=== PATIENT | male | born 2000 | race Caucasian/White ===

== ENCOUNTER 2021-02-16 11:17 | Emergency (ER) | payer OTHER ==
[~2021-02-16] VITALS: Ht 165.1 cm; Wt 82.1 kg
[2021-02-16 11:21] VITALS: BP 149/64
--- NOTE | 2021-02-16 11:25 | NUR ---
PT AMBULATED TO ER BED 4 WITH A STEADY GAIT.
--- NOTE | 2021-02-16 11:32 | NUR ---
Dr. De Oliveira with pt for MSE.
--- NOTE | 2021-02-16 11:40 | NUR ---
see complete assessment.
[2021-02-16] MEDS ORDERED: ONDANSETRON 4 MG/2 ML VIAL IVP ONE (11:45)
[2021-02-16] MEDS ORDERED: KETOROLAC 30 MG/ML VIAL IVP ONE (11:45)
[2021-02-16] MEDS ORDERED: NACL 0.9% 1,000 ML IV SCH (11:45)
[2021-02-16 12:03] LABS: BASOPHILS % (AUTO) 0.3 % (0.0-2.0); EOSINOPHILS # (AUTO) 0.1 K/uL (0-0.4); EOSINOPHILS % (AUTO) 1.4 % (0.0-4.0); HEMATOCRIT 45.9 % (36-52); HEMOGLOBIN 15.8 g/dL (12.0-18.0); LYMPHOCYTES # (AUTO) 0.9 K/uL (2.0-11.5); LYMPHOCYTES % (AUTO) 20.6 % (20.5-51.1); MEAN CORPUSCULAR HEMOGLOBIN 30 pg (27-31); MEAN CORPUSCULAR HGB CONC 34 g/dL (33-37); MEAN CORPUSCULAR VOLUME 86.7 fL (80-94); MONOCYTES # (AUTO) 0.4 K/uL (0.8-1.0); MONOCYTES % (AUTO) 10.5 % (1.7-9.3); NEUTROPHILS # (AUTO) 2.9 K/uL (1.8-7.7); NEUTROPHILS % (AUTO) 67.2 % (42.2-75.2); PLATELET COUNT (AUTO) 127 K/uL (140-450); RED BLOOD CELL COUNT(AUTO) 5.29 MIL/uL (4.20-6.10); RED CELL DISTRIBUTION WIDTH 12.9 % (11.6-13.7); WHITE BLOOD COUNT (AUTO) 4.3 K/uL (4.8-10.8)
--- NOTE | 2021-02-16 12:07 | NUR ---
flu and antigen swab collected and sent with Anne-Marie salazar.
--- NOTE | 2021-02-16 12:08 | NUR ---
pt positioned for comfort in bed, connected to cardiac and pulse ox monitoring. VSS. IV site placed, patent with blood return. no other needs at this time.
[2021-02-16 12:21] LABS: ALBUMIN 4.6 g/dL (3.4-5.0); ANION GAP 10.2 (8-16); CARBON DIOXIDE 31.4 mmol/L (21-32); POTASSIUM 3.6 mmol/L (3.5-5.1); TOTAL BILIRUBIN 1.2 mg/dL (0.0-1.0)
--- NOTE | 2021-02-16 12:34 | NUR ---
RENE RESULT INVALID -- DR. ORTEGA MADE AWARE.
[2021-02-16 12:41] LABS: APPEARANCE,URINE SL CLOUDY (CLEAR); BILIRUBIN,URINE NEGATIVE (NEGATIVE); BLOOD, URINE NEGATIVE (NEGATIVE); COLOR,URINE YELLOW (YELLOW); LEUKOCYTE ESTERASE ,URINE NEGATIVE (NEGATIVE); NITRITE, URINE NEGATIVE (NEGATIVE); PH,URINE 6.5 (5.0-9.0); UGLUCOSE NEGATIVE (NEGATIVE)
[2021-02-16 12:52] VITALS: BP 128/62
--- NOTE | 2021-02-16 12:52 | NUR ---
reswabbed pt with Antigen swab and added PCR swab.sent with geotechnical laboratory technician Anne-Marie.
[2021-02-16 12:56] LABS: RBC,URINE 0-5 /HPF (0-5); WBC,URINE 0-5 /HPF (0-5)
[2021-02-16] MEDS ORDERED: ONDANSETRON 4 MG/2 ML VIAL ONE (13:53)
[2021-02-16] MEDS ORDERED: KETOROLAC 30 MG/ML VIAL ONE (13:54)
[2021-02-16] MEDS ORDERED: PROM118S5 PO (14:06)
[2021-02-16] MEDS ORDERED: NAPR-1717 PO (14:06)
[2021-02-16] MEDS ORDERED: ONDA4TAB PO (14:06)
--- NOTE | 2021-02-16 14:19 | NUR ---
d/c with VSS. d/c with rx of promethazine,zofran and naprosyn . opportunity to ask questions given and answered.
== END 2021-02-16 14:18 | disposition home or self-care (01) ==
LOC: MED 11:17
DX: U07.1 COVID-19 (principal); R10.11 Right upper quadrant pain
CPT/HCPCS: 36415; 71045; 76705; 80053; 81001; 83605; 83690; 85025; 87040; 87086; 87426; 87804; 96361; 96374; 96375; 99285; J1885; J2405; J7030; U0003

== ENCOUNTER 2021-06-16 11:26 | Emergency (ER) | payer OTHER ==
[~2021-06-16] VITALS: Ht 125.7 cm; Wt 85.7 kg
[~2021-06-16 11:26] MED LIST: NAPR-1717 PO; ONDA4TAB PO; PROM118S5 PO
[2021-06-16 11:46] VITALS: BP 130/71
--- NOTE | 2021-06-16 12:37 | NUR ---
PERSONAL COMPUTER SPECIALIST WITH PT IN A.
[2021-06-16 12:52] LABS: BASOPHILS % (AUTO) 0.6 % (0.0-2.0); EOSINOPHILS # (AUTO) 0.2 K/uL (0-0.4); EOSINOPHILS % (AUTO) 4.4 % (0.0-4.0); HEMATOCRIT 44.2 % (36-52); HEMOGLOBIN 15.6 g/dL (12.0-18.0); LYMPHOCYTES # (AUTO) 1.3 K/uL (2.0-11.5); LYMPHOCYTES % (AUTO) 24.2 % (20.5-51.1); MEAN CORPUSCULAR HEMOGLOBIN 30 pg (27-31); MEAN CORPUSCULAR HGB CONC 35 g/dL (33-37); MEAN CORPUSCULAR VOLUME 83.9 fL (80-94); MONOCYTES # (AUTO) 0.3 K/uL (0.8-1.0); MONOCYTES % (AUTO) 5.5 % (1.7-9.3); NEUTROPHILS # (AUTO) 3.6 K/uL (1.8-7.7); NEUTROPHILS % (AUTO) 65.3 % (42.2-75.2); PLATELET COUNT (AUTO) 147 K/uL (140-450); RED BLOOD CELL COUNT(AUTO) 5.27 MIL/uL (4.20-6.10); RED CELL DISTRIBUTION WIDTH 13.1 % (11.6-13.7); WHITE BLOOD COUNT (AUTO) 5.6 K/uL (4.8-10.8)
[2021-06-16 13:16] LABS: ALBUMIN 4.4 g/dL (3.4-5.0); ANION GAP 10.1 (8-16); CARBON DIOXIDE 29.7 mmol/L (21-32); CREATININE 0.8 mg/dL (0.6-1.3); POTASSIUM 3.8 mmol/L (3.5-5.1); TOTAL BILIRUBIN 1.1 mg/dL (0.0-1.0)
--- NOTE | 2021-06-16 13:18 | NUR ---
MI MARIA WITH PT FOR FURTHER EVALUATION.
--- NOTE | 2021-06-16 13:20 | NUR ---
PT TO LOBBY.
[2021-06-16 13:37] VITALS: BP 128/68
--- NOTE | 2021-06-16 13:37 | NUR ---
Patient discharged with v/s stable. Written and verbal after care instructions given and explained. Patient verbalized understanding. Ambulatory with steady gait. All questions addressed prior to discharge. Advised to follow up with PMD.
== END 2021-06-16 13:37 | disposition home or self-care (01) ==
LOC: MED 11:26
DX: R35.8 Other polyuria (principal); R42 Dizziness and giddiness; R63.1 Polydipsia; Z79.899 Other long term (current) drug therapy; Z98.890 Other specified postprocedural states
CPT/HCPCS: 36415; 80053; 81002; 82948; 85025; 93005; 99284

== ENCOUNTER 2023-09-19 19:54 | Emergency (ER) | payer OTHER ==
[~2023-09-19] VITALS: Ht 167.6 cm; Wt 72.6 kg
[2023-09-19 20:08] VITALS: BP 150/102; PULSE 96; RESP 16; TEMP 98.4; O2SAT 100
[2023-09-19 21:01] LABS: BASOPHILS % (AUTO) 0.3 % (0.0-2.0); EOSINOPHILS # (AUTO) 0.2 K/uL (0-0.4); EOSINOPHILS % (AUTO) 2.4 % (0.0-4.0); HEMATOCRIT 44.9 % (36-52); HEMOGLOBIN 15.5 g/dL (12.0-18.0); LYMPHOCYTES % (AUTO) 13.4 % (20.5-51.1); MEAN CORPUSCULAR HEMOGLOBIN 28 pg (27-31); MEAN CORPUSCULAR HGB CONC 35 g/dL (33-37); MEAN CORPUSCULAR VOLUME 82.4 fL (80-94); MONOCYTES # (AUTO) 0.4 K/uL (0.8-1.0); MONOCYTES % (AUTO) 5.3 % (1.7-9.3); NEUTROPHILS # (AUTO) 6.1 K/uL (1.8-7.7); NEUTROPHILS % (AUTO) 78.6 % (42.2-75.2); PLATELET COUNT (AUTO) 192 K/uL (140-450); RED BLOOD CELL COUNT(AUTO) 5.46 MIL/uL (4.20-6.10); RED CELL DISTRIBUTION WIDTH 13.2 % (11.6-13.7); WHITE BLOOD COUNT (AUTO) 7.8 K/uL (4.8-10.8)
[2023-09-19 21:20] VITALS: BP 162/98; PULSE 92; RESP 14; TEMP 98.2
[2023-09-19 21:22] LABS: INR 0.98 (0.8-1.2); PARTIAL THROMBOPLASTIN TIME 26.2 secs (22-35.6); PROTHROMBIN TIME 10.3 secs (10.8-13.4)
[2023-09-19 21:23] LABS: ALBUMIN 4.6 g/dL (3.4-5.0); ANION GAP 14.4 (8-16); CARBON DIOXIDE 29.1 mmol/L (21-32); CREATININE 1.1 mg/dL (0.6-1.3); POTASSIUM 3.5 mmol/L (3.5-5.1); TOTAL BILIRUBIN 0.9 mg/dL (0.0-1.0); TOTAL PROTEIN, SERUM 8.4 g/dL (6.4-8.2)
[2023-09-19 21:47] VITALS: O2SAT 99
[2023-09-19] MEDS ORDERED: PHEN26CR2 RC (22:00)
[2023-09-19] MEDS ORDERED: MIRABULK PO (22:00)
== END 2023-09-19 22:06 | disposition home or self-care (01) ==
LOC: MED 19:54
DX: K62.5 Hemorrhage of anus and rectum (principal); K64.4 Residual hemorrhoidal skin tags; K59.00 Constipation, unspecified; E11.9 Type 2 diabetes mellitus without complications; I10 Essential (primary) hypertension; Z79.4 Long term (current) use of insulin; Z79.899 Other long term (current) drug therapy
CPT/HCPCS: 36415; 80053; 85025; 85610; 85730; 99283

== ENCOUNTER 2024-01-26 12:14 | Emergency (ER) | payer OTHER ==
[~2024-01-26] VITALS: Ht 170.2 cm; Wt 68.0 kg
[~2024-01-26 12:14] MED LIST changes: +MIRABULK PO; +PHEN26CR2 RC
[2024-01-26 12:25] VITALS: BP 119/71; PULSE 82; RESP 18; TEMP 97.4; O2SAT 96
[2024-01-26 14:36] LABS: BASOPHILS % (AUTO) 0.4 % (0.0-2.0); EOSINOPHILS # (AUTO) 0.3 K/uL (0-0.4); EOSINOPHILS % (AUTO) 4.3 % (0.0-4.0); HEMATOCRIT 44.2 % (36-52); HEMOGLOBIN 15.9 g/dL (12.0-18.0); LYMPHOCYTES # (AUTO) 1.4 K/uL (2.0-11.5); LYMPHOCYTES % (AUTO) 19.8 % (20.5-51.1); MEAN CORPUSCULAR HEMOGLOBIN 30 pg (27-31); MEAN CORPUSCULAR HGB CONC 36 g/dL (33-37); MEAN CORPUSCULAR VOLUME 83.3 fL (80-94); MONOCYTES # (AUTO) 0.4 K/uL (0.8-1.0); MONOCYTES % (AUTO) 5.2 % (1.7-9.3); NEUTROPHILS # (AUTO) 5.1 K/uL (1.8-7.7); NEUTROPHILS % (AUTO) 70.3 % (42.2-75.2); PLATELET COUNT (AUTO) 172 K/uL (140-450); WHITE BLOOD COUNT (AUTO) 7.3 K/uL (4.8-10.8)
[2024-01-26 14:49] LABS: CALCIUM 9.2 mg/dL (8.5-10.1); CARBON DIOXIDE 29.7 mmol/L (21-32); CREATININE 0.8 mg/dL (0.6-1.3); POTASSIUM 3.7 mmol/L (3.5-5.1)
[2024-01-26] MEDS ORDERED: LID5T TP (15:41)
[2024-01-26 15:59] VITALS: BP 109/66; PULSE 82; RESP 18; TEMP 99.3; O2SAT 100
== END 2024-01-26 15:59 | disposition home or self-care (01) ==
LOC: MED 12:14
DX: S30.0XXA Contusion of lower back and pelvis, initial encounter (principal); E11.9 Type 2 diabetes mellitus without complications; I10 Essential (primary) hypertension; Z86.69 Personal history of other diseases of the nervous system and sense organs; Z79.899 Other long term (current) drug therapy; W18.39XA Other fall on same level, initial encounter; Y92.89 Other specified places as the place of occurrence of the external cause; Y93.89 Activity, other specified; Y99.8 Other external cause status
CPT/HCPCS: 36415; 74018; 80048; 85025; 99284

== ENCOUNTER 2024-05-22 18:17 | Emergency (ER) | payer OTHER ==
[~2024-05-22] VITALS: Ht 167.6 cm; Wt 83.0 kg
[~2024-05-22 18:17] MED LIST changes: +LID5T TP
[2024-05-22 18:27] VITALS: BP 127/72; PULSE 97; RESP 20; TEMP 98.6; O2SAT 98
[2024-05-22 19:01] LABS: BASOPHILS % (AUTO) 0.6 % (0.0-2.0); EOSINOPHILS # (AUTO) 0.2 K/uL (0-0.4); EOSINOPHILS % (AUTO) 4.2 % (0.0-4.0); HEMATOCRIT 41.8 % (36-52); HEMOGLOBIN 14.4 g/dL (12.0-18.0); LYMPHOCYTES % (AUTO) 21.6 % (20.5-51.1); MEAN CORPUSCULAR HEMOGLOBIN 29 pg (27-31); MEAN CORPUSCULAR HGB CONC 35 g/dL (33-37); MONOCYTES # (AUTO) 0.6 K/uL (0.8-1.0); MONOCYTES % (AUTO) 12.9 % (1.7-9.3); NEUTROPHILS # (AUTO) 2.7 K/uL (1.8-7.7); NEUTROPHILS % (AUTO) 60.7 % (42.2-75.2); PLATELET COUNT (AUTO) 123 K/uL (140-450); RED BLOOD CELL COUNT(AUTO) 4.98 MIL/uL (4.20-6.10); RED CELL DISTRIBUTION WIDTH 13.2 % (11.6-13.7); WHITE BLOOD COUNT (AUTO) 4.4 K/uL (4.8-10.8)
[2024-05-22 19:10] LABS: ANION GAP 10.4 (8-16); CALCIUM 8.8 mg/dL (8.5-10.1); CARBON DIOXIDE 29.9 mmol/L (21-32); POTASSIUM 3.3 mmol/L (3.5-5.1)
[2024-05-22] MEDS: ACETAMINOPHEN 325 MG TAB PO ONE (19:25)
[2024-05-22] MEDS: KETOROLAC 30 MG/ML VIAL IM ONE (19:26)
[2024-05-22] MEDS ORDERED: ALBU0.0912 IH (19:48)
[2024-05-22] MEDS ORDERED: ACET-10509 PO (19:48)
[2024-05-22] MEDS ORDERED: IBUP-2213 PO (19:48)
[2024-05-22 20:10] VITALS: BP 125/68; PULSE 98; RESP 18; TEMP 98.5; O2SAT 98
== END 2024-05-22 20:10 | disposition home or self-care (01) ==
LOC: MED 18:17
DX: U07.1 COVID-19 (principal); R07.89 Other chest pain; E11.9 Type 2 diabetes mellitus without complications; I10 Essential (primary) hypertension; Z86.69 Personal history of other diseases of the nervous system and sense organs; Z79.899 Other long term (current) drug therapy
CPT/HCPCS: 36415; 71045; 80048; 83880; 84484; 85025; 93005; 96372; 99285; J1885; Q0092

== ENCOUNTER 2024-07-07 20:26 | Emergency (ER) | payer OTHER ==
[~2024-07-07] VITALS: Ht 172.7 cm; Wt 68.0 kg
[~2024-07-07 20:26] MED LIST changes: +ACET500T99 PO; +ALBU0.0912 IH; +IBUP-2213 PO
--- NOTE | 2024-07-07 20:32 | NUR ---
ANITHA ROBLESS TO LOBBY
[2024-07-07 20:44] VITALS: BP 124/70; PULSE 84; RESP 16; TEMP 98.4; O2SAT 98
[2024-07-08 02:10] VITALS: BP 123/72; PULSE 83
[2024-07-08 02:36] LABS: FLU A ANTIGEN negative (NEGATIVE); FLU B ANTIGEN NEGATIVE (NEGATIVE)
--- NOTE | 2024-07-08 03:16 | NUR ---
Written and verbal after care instructions given and explained. Patient verbalized understanding. Ambulatory with steady gait. All questions addressed prior to discharge. Advised to follow up with PMD.
== END 2024-07-08 03:16 | disposition home or self-care (01) ==
LOC: MED 20:26
DX: R53.81 Other malaise (principal); E11.65 Type 2 diabetes mellitus with hyperglycemia; Z20.822 Contact with and (suspected) exposure to COVID-19; Z79.899 Other long term (current) drug therapy
CPT/HCPCS: 82948; 99283